=== PATIENT | male | born 1970 ===

== ENCOUNTER 2024-04-27 09:46 | Emergency (ER) | payer SELFPAY ==
[2024-04-27 10:26] VITALS: BP 133/90; PULSE 82; RESP 14; TEMP 36.6; O2SAT 99
--- NOTE | 2024-04-27 13:15 | PC.NURSE ---
this RN called pt in waiting room to get ED room @1306 and again @1314 with no answer. checked waiting room bathrooms and outside.
--- OUTSIDE RECORDS SUMMARY | 2024-05-04 11:10 | XMS_ITS | CONTINUITY OF CARE DOCUMENT ---
Author Name cecily, cecily Address Unknown Organization [facility] Address [address] [place] [address] Phone [phone] Care Team Providers Care Ui Developer With Angular [employer] Name Role Phone David PRESTON, Jonh Unavailable [phone] EPIFANIO SHEPHERD Unavailable EPIFANIO SHEPHERD Unavailable PROBLEMS Condition Status Date Provider Notes Tobacco abuse active Jonh Hernandez MD Chest pain active Jonh Hernandez MD Hypercholesterolemia active Jonh Hernandez MD Family History Coronary Hear t Disease male < 55: active ? Jonh Hernandez MD Other symptoms involving car diovascular system active Jonh Hernandez MD ENCOUNTERS Date Type Provider Location Encounter Diag nosis - In-person encounter Office Visit Jonh Hernandez MD [facility] Tobacco abuse - In-person encounter Office Visit Jonh Hernandez MD [facility] Other symptoms involving cardiovascular systemFamily History Coronary Heart Disease male < 55:Hypercholesterolemi aChest pain VITAL SIGNS Date Observation Value Provider Body Mass Index (Ratio) 21.77 kg/m2 Rox Hernandez MD blood pressure, cuff size regular Me sanjiv Carrillo blood pressure, diastolic 82 mm[Hg] Me sanjiv Carrillo blood pressure, systolic 151 mm[Hg] Viky Carrillo oxygen saturation, oximetry 99 % Ifrah Carrillo respiratory rate E&M 16 /min Ifrah Carrillo pulse rate 84 /min Ifrah Carrillo weight E&M 139 [lb_av] Ifrah Carrillo height E&M 67 [in_i] Ifrah Carrillo blood pressure, diastolic 74 mm[Hg] Tx sanjiv Carrillo blood pressure, systolic 132 mm[Hg] Viky call Carrillo blood pressure, diastolic 87 mm[Hg] Tx sanjiv Carrillo blood pressure, systolic 145 mm[Hg] Viky call Carrillo pulse rate 88 /min Ifrah Carrillo oxygen saturation, oximetry 98 % Ifrah Carrillo respiratory rate E&M 15 /min Ifrah Carrillo Body Mass Index (Ratio) 21.77 kg/m2 Casi martinez Carrillo weight E&M 139 [lb_av] Ifrah Carrillo height E&M 67 [in_i] Ifrah Carrillo ALLERGIES No Known Drug Allergies HISTORY OF MEDICATION USE Medication Status Instructions Dates Provider Indications Com ments ATORVASTATIN CALCIUM 20 MG ORAL TABLET active once daily Ifrah Carrillo SOCIAL HISTORY Date Observation Value Provider social history reviewed E&M revi ewed - no changes required Jonh Hernandez MD alcohol use, average drinks per day social Ifrah Carrillo smoking/tobacco cess ation, patient education and counseling yes Ifrah Carrillo alcohol use yes Ifrah Carrillo smoking, date started 1985 Angel cabezas Carrillo cigarette use yes Ifrah Carrillo smoking status current every day smoker Juan Carlos driver Carrillo smoking status current every day smoker Juan Carlos neisha Carrillo number of grandchildren Jonh Hernandez MD U beryl Hernandez MD social history reviewed E&M revi ewed - no changes required Jonh Hernandez MD alcohol use, average drinks per day social Jonh Hernandez MD alcohol use yes Jonh Hernandez MD social history E&M Patient rashaun espinosa smokes every day. 1 5 cig/day S moking History: P atsonia currently smokes every day. P atsonia has been counseled to quit. Jonh Hernandez MD smoking/tobacco cess ation, patient education and counseling yes Ifrah Gerardo smoking, date started 1985 Angel cabezas Gerardo cigarette use yes Ifrah Carrillo smoking status current every day smoker U beryl Hernandez MD FUNCTIONAL STATUS Date Observation Value Provider periodic limb movement index absent (0) Ifrah Gerardo FAMILY HISTORY Family Member Condition Father Family History of Co ronary Artery Disease: Father Family History Coron charito Heart Disease male < 55: Father Family History of Co ronary Artery Disease: INSURANCE PROVIDERS Payer name Policy type / Coverage type [facility] MEDICAID (2) Medicaid [id number] TREATMENT PLAN Date Name Performer Cardiology: H is updated medication list for this problem includes: Atorvastatin Calcium 20 Mg Oral Tabs (Atorvastatin calcium) ..... Once daily Jonh Hernandez MD Cardiology:He had an echo done that showed normal LV function with an EF of 55%. He also had a stress test done that came back normal. Jonh Hernandez MD Cardiology:The Patient was reenc ouraged to stop smoking. Jonh Hernandez MD Cardiology:Will get results. Gabriel Hernandez MD Cardiology Jonh Hernandez MD Cardiology:Will check routine st ress and echo. Jonh Hernandez MD Date Name STR - Routine Complete Echo HISTORY OF PROCEDURES Procedure Date Procedure Name Provider Procedure Notes S tatus SNOMED-CT: 424970194 Smoking Cessation Counseling Jonh Hernandez MD completed SNOMED-CT: 67533131 Physical Exam, Performed: Pulse Exam of Foot Jonh Hernandez MD completed SNOMED-CT: 035709985 [id number] Current Medications Documented Jonh Hernandez MD completed Stress EKG Jonh Hernandez MD completed SNOMED-CT: 197858099 Smoking Cessation Counseling Jonh Hernandez MD completed SNOMED-CT: 51410937 Physical Exam, Performed: Pulse Exam of Foot Jonh Hernandez MD completed EKG Jonh Hernandez MD completed SNOMED-CT: 624879486 787587 Current Medications Documented Jnoh Hernandez MD completed
--- OUTSIDE RECORDS SUMMARY | 2024-05-04 20:55 | XMS_ITS | CONTINUITY OF CARE DOCUMENT ---
Author Name cecily, cecily Address Unknown Organization [facility] Address [address] [place] [address] Phone [phone] Care Team Providers Care Cruise Guide Name Role Phone David PRESTON, Jonh Unavailable EPIFANIO SHEPHERD Unavailable [phone] EPIFANIO SHEPHERD Unavailable PROBLEMS Condition Status Date Provider Notes Tobacco abuse active Jonh Heranndez MD Chest pain active Jonh Hernandez MD Hypercholesterolemia active Jonh Hernandez MD Family History Coronary Hear t Disease male < 55: active ? Jonh Hernandez MD Other symptoms involving car diovascular system active Jonh Hernandez MD ENCOUNTERS Date Type Provider Location Encounter Diag nosis - In-person encounter Office Visit Jonh Hernandez MD [place] [facility] Tobacco abuse - In-person encounter Office Visit Jonh Hernandez MD [facility] Other symptoms involving cardiovascular systemFamily History [...] Ifrah Carrillo blood pressure, diastolic 74 mm[Hg] Nv sanjiv Carrillo blood pressure, systolic 132 mm[Hg] Viky call Carrillo blood pressure, diastolic 87 mm[Hg] Nv sanjiv Carrillo blood pressure, systolic 145 mm[Hg] [...] current every day smoker Juan Carlos driver Carirllo smoking status current every day smoker Juan [...] Payer name Policy type / Coverage type [facility] [place] MEDICAID (2) Medicaid [id number] TREATMENT PLAN Date Name Performer Cardiology: H [...] Name Provider Procedure Notes S tatus SNOMED-CT: 047240639 Smoking Cessation Counseling Jonh Hernandez MD completed SNOMED-CT: 25140885 Physical Exam, Performed: Pulse Exam of Foot Jonh Hernandez MD completed SNOMED-CT: 665298724 593320 Current Medications Documented Jonh Hernandez MD completed Stress EKG Jonh Hernandez MD completed SNOMED-CT: 127541572 Smoking Cessation Counseling Jonh Hernandez MD completed SNOMED-CT: 83024748 Physical Exam, Performed: Pulse Exam of Foot Jonh Hernandez MD completed EKG Jonh Hernandez MD completed SNOMED-CT: 661145535 340449 Current Medications Documented Jonh Hernandez MD completed
== END 2024-04-27 13:15 | disposition left against medical advice (07) ==
PROVIDERS: PCP Internal Medicine Gastroenterology
DX: R10.9 Unspecified abdominal pain (principal)
CPT/HCPCS: 99199